=== PATIENT | female | born 1990 | race Caucasian/White ===

== ENCOUNTER → 2020-03-27 | Outpatient (CLI) | payer OTHER ==
[~2020-03-27] MED LIST: GADOTERATE 7.5 MMOL/15ML VIAL. IVP ONE; LAMO25TA9 PO
--- NOTE | 2020-03-27 11:51 | KCIC ---
MRI of the Brain without and with Contrast 03/27/2020 Clinical History: Seizures. Technique: Unenhanced T1-weighted sagittal and axial and FLAIR, T2-weighted, gradient echo and diffus ion-weighted axial images of the brain were obtained. Additionally thin section FLAIR and T2-weighted coronal images through the temporal lobes were obtained. After the intravenous administration of 14 cc of CLARISCAN, enhanced T1-weighted axial and coronal images of the brain were obtained. Findings: The ventricles and sulci are within normal limits in size and configuration. No area of sig nificant abnormal signal intensity is seen involving the brain parenchyma. No abnormal area of contra st enhancement is seen. No extra-axial fluid collection is noted. There is no MRI evidence of acute i schemia/infarction. Images through the temporal lobes are within normal limits. Mild mucosal thickening in seen scattered throughout the ethmoid air cells bilaterally. Normal flow v oids are seen within the major vascular structures surrounding the brain parenchyma. Impression: Negative study. Electronically signed by: Antonio Solorio MD (03/27/2020 11:49 AM) [id number]
== END ==
LOC: KCIC MRI 09:19
PROVIDERS: ATTEND Psychiatry & Neurology Neurology with Special Qualifications in Child Neurology
DX: G40.309 Generalized idiopathic epilepsy and epileptic syndromes, not intractable, without status epilepticus (principal); J34.89 Other specified disorders of nose and nasal sinuses
CPT/HCPCS: 70553; A9575